=== PATIENT | female | born 1990 | race Caucasian/White ===

== ENCOUNTER 2017-01-06 01:31 | Emergency (ER) | payer OTHER ==
[2017-01-06 01:44] VITALS: BMI 41.1
[2017-01-06 01:47] VITALS: RESP 18
--- NOTE | 2017-01-06 02:16 | ED PDOC ---
Arrival/HPI - General Chief Complaint: Chest Pain Time Seen by Provider: 01/06/17 01:50 Historian: Patient - History of Present Illness Narrative History of Present Illness (Text): 01/06/17 01:50 Renita Serrano is a 26 year old female, whose past medical history includes depression and anxiety, who presents to the emergency department complaining of some chest pressure for a few hours. Patient describes her symptoms as chest pressure that worsens with movement and when lying down At present, patient states she still feels some discomfort and states to have had a similar episode about a year ago. Patient denies any fever, chills, nausea, vomiting, diarrhea, urinary symptoms, back pain, neck pain, headache, dizziness, trauma/injury, suicidal/homicidal ideation or any other complaints.Denies any drug use. Time/Duration: 1-3 hours Symptom Onset: Gradual Symptom Course: Unchanged Activities at Onset: Rest Context: Home Past Medical History - Provider Review Nursing Documentation Reviewed: Yes - Psychiatric Hx Anxiety: Yes Hx Depression: Yes Hx Substance Use: No - Surgical History Hx Section: Yes (x3) Family/Social History - Physician Review Nursing Documentation Reviewed: Yes Family/Social History: No Known Family HX Smoking Status: Light Smoker < 10 Cigarettes Daily Hx Alcohol Use: Yes Frequency of alcohol use: Socially Hx Substance Use: No Allergies/Home Meds Allergies/Adverse Reactions: Allergies acetaminophen [From Percocet] Allergy (Verified 01/06/17 01:43) VOMITING oxycodone [From Percocet] Allergy (Verified 01/06/17 01:43) VOMITING Home Medications: Home Meds Medication Instructions Recorded Confirmed Sertraline HCl [Zoloft] 150 mg PO DAILY 01/06/17 01/06/17 Review of Systems - Physician Review All systems were reviewed & negative as marked: Yes - Review of Systems Constitutional: absent: Fevers, Night Sweats Eyes: absent: Vision Changes ENT: absent: Hearing Changes Respiratory: SOB Cardiovascular: Chest Pain (Chest discomfort which worsens when lying down) Gastrointestinal: absent: Abdominal Pain Genitourinary Female: absent: Dysuria, Frequency Musculoskeletal: absent: Arthralgias, Back Pain Skin: absent: Rash, Pruritis Neurological: absent: Headache, Dizziness Endocrine: absent: Diaphoresis Hemo/Lymphatic: absent: Adenopathy Physical Exam Vital Signs Reviewed: Yes Vital Signs Temp Pulse Resp BP Pulse Ox 01/06/17 01:44 98.6 F 73 18 141/81 100 Temperature: Afebrile Blood Pressure: Normal Pulse: Regular Respiratory Rate: Normal Appearance: Positive for: Well-Appearing, Non-Toxic, Comfortable Pain Distress: None Mental Status: Positive for: Alert and Oriented X 3 - Systems Exam Head: Present: Atraumatic, Normocephalic Pupils: Present: PERRL Extroacular Muscles: Present: EOMI Conjunctiva: Present: Normal Mouth: Present: Moist Mucous Membranes Neck: Present: Normal Range of Motion Respiratory/Chest: Present: Clear to Auscultation, Good Air Exchange. No: Respiratory Distress, Accessory Muscle Use Cardiovascular: Present: Regular Rate and Rhythm, Normal S1, S2. No: Murmurs Abdomen: Present: Normal Bowel Sounds. No: Tenderness, Distention, Peritoneal Signs Back: Present: Normal Inspection Upper Extremity: Present: Normal Inspection. No: Cyanosis, Edema Lower Extremity: Present: Normal Inspection. No: Edema Neurological: Present: GCS=15, CN II-XII Intact, Speech Normal Skin: Present: Warm, Dry, Normal Color. No: Rashes Psychiatric: Present: Alert, Oriented x 3, Normal Insight, Normal Concentration Medical Decision Making ED Course and Treatment: 01/06/17 02:19 Impression: 26 year old female complaining of chest discomfort. Differential Diagnosis included but are not limited to: Plan: -- EKG -- Chest X-ray -- HCG -- Labs -- Reassess and disposition Progress Notes: 01/06/17 04:35 Pt. had relief of symptoms following medication given. - Lab Interpretations Lab Results: 01/06/17 02:15 01/06/17 02:15 Lab Results 01/06/17 02:15: WBC 9.8, RBC 4.12, Hgb 11.9 L, Hct 36.2, MCV 87.9, MCH 28.9, MCHC 32.9, RDW 13.4, Plt Count 312, MPV 9.1 01/06/17 02:15: Urine HCG, Qual Negative 01/06/17 02:15: Sodium 137, Potassium 3.9, Chloride 104, Carbon Dioxide 24, Anion Gap 13, BUN 10, Creatinine 0.5 L, Est GFR ( Amer) > 60, Est GFR ( Non-Af Amer) > 60, Random Glucose 91, Calcium 8.8, Total Bilirubin 0.5, AST 33, ALT 30, Alkaline Phosphatase 49, Lactate Dehydrogenase 414, Total Creatine Kinase 90, Troponin I < 0.01, Total Protein 6.7, Albumin 4.1, Globulin 2.6, Albumin/Globulin Ratio 1.6 01/06/17 02:15: PT 9.9, INR 0.91 L, APTT 26.3, D-Dimer, Quantitative 226 I have reviewed the lab results: Yes - RAD Interpretation Radiology Orders: 01/06/17 01:59 CHEST PORTABLE [RAD] Stat - Medication Orders Current Medication Orders: Discontinued Medications Ketorolac Tromethamine (Toradol) 30 mg IVP ONCE ONE Stop: 01/06/17 03:32 Last Admin: 01/06/17 03:57 Dose: 30 mg MAR Pain Assessment Document 01/06/17 03:57 ARNULFO (Rec: 01/06/17 03:57 ARNULFO [id number]) Pain Reassessment Is this a pain reassessment? Yes Sleep Is patient sleeping during reassessment? No Location Left, Right or Bilateral Left Pain Location Body Site Shoulder IVP Administration Document 01/06/17 03:57 ARNULFO (Rec: 01/06/17 03:57 ARNULFO [id number]) Charges for Administration # of IVP Administrations 1 - Scribe Statement The provider has reviewed the documentation as recorded by the Elvia Alfaro Provider Scribe Attestation: All medical record entries made by the Scribe were at my direction and personally dictated by me. I have reviewed the chart and agree that the record accurately reflects my personal performance of the history, physical exam, medical decision making, and the department course for this patient. I have also personally directed, reviewed, and agree with the discharge instructions and disposition. Disposition/Present on Arrival - Present on Arrival Any Indicators Present on Arrival: No History of DVT/PE: No History of Uncontrolled Diabetes: No Urinary Catheter: No History of Decub. Ulcer: No History Surgical Site Infection Following: None - Disposition Have Diagnosis and Disposition been Completed?: Yes Diagnosis: Musculoskeletal chest pain Disposition: HOME/ ROUTINE Disposition Time: 04:33 Patient Plan: Discharge Condition: GOOD Discharge Instructions (ExitCare): Chest Pain (ED) Additional Instructions: Rest/no strenuous physical activity/take meds as prescribed/follow up with your doctor this week Prescriptions: Naproxen [Naprosyn] 500 mg PO BID PRN #12 tab PRN Reason: Pain Referrals: Fiona NELSON,Gladys Taylor APN [Primary Care Provider] - Follow up with primary Forms: [employer] (Bhutanese)
[2017-01-06 02:39] LABS: HEMATOCRIT 36.2 % (36.0-48.0); MEAN CELL VOLUME 87.9 fl (80.0-105.0); MEAN CORPUSCULAR HEMOGLOBIN 28.9 pg (25.0-35.0); MEAN CORPUSCULAR HGB CONC 32.9 g/dl (31.0-37.0); MEAN PLATELET VOLUME 9.1 fl (7.0-11.0); RED CELL DISTRIBUTION WIDTH 13.4 % (11.5-14.5); WHITE BLOOD COUNT 9.8 10^3/ul (4.5-11.0)
[2017-01-06 02:44] LABS: ALB/GLOB RATIO 1.6 (1.1-1.8); ALKALINE PHOSPHATASE 49 U/L (38-126); ALT/SGPT 30 U/L (7-56); AST/SGOT 33 U/L (14-36); BILIRUBIN,TOTAL 0.5 mg/dL (0.2-1.3); BLOOD UREA NITROGEN 10 mg/dL (7-21); CALCIUM 8.8 mg/dL (8.4-10.5); CARBON DIOXIDE 24 mmol/L (21-33); CHLORIDE 104 mmol/L (98-107); GFR AFRICAN-AMERICAN > 60; GLUCOSE,RANDOM 91 mg/dL (70-110); POTASSIUM 3.9 mmol/L (3.6-5.0); SODIUM 137 mmol/L (132-148); TOTAL PROTEIN 6.7 g/dL (5.8-8.3)
[2017-01-06 02:57] LABS: TROPONIN I < 0.01 ng/mL
[2017-01-06 02:59] LABS: INR 0.91 (0.93-1.08); PARTIAL THROMBOPLASTIN TIME 26.3 Seconds (25.1-36.5)
[2017-01-06 04:46] VITALS: BP 105/69; PULSE 60; TEMP 98; O2SAT 99
--- NOTE | 2017-01-06 08:59 | RAD ---
HISTORY: chest pain COMPARISON: No prior. FINDINGS: LUNGS: The lungs are well inflated and clear. PLEURA: No significant pleural effusion identified, no pneumothorax apparent. CARDIOVASCULAR: Normal. OSSEOUS STRUCTURES: No significant abnormalities. VISUALIZED UPPER ABDOMEN: Normal. OTHER FINDINGS: None. IMPRESSION: No active pulmonary disease.
--- NOTE | 2017-01-06 09:28 | CARD ---
APPROVED REPORT EKG Measurement Heart [id number] [id number] <Conclusion> Normal sinus rhythm Normal ECG
== END 2017-01-06 04:47 | disposition home or self-care (01) ==
LOC: ED 01:31
DX: R07.89 Other chest pain (principal); F17.210 Nicotine dependence, cigarettes, uncomplicated
CPT/HCPCS: 71010; 80053; 82550; 83615; 84484; 84703; 85027; 85378; 85610; 85730; 93005; 96374; 99284; J1885

== ENCOUNTER 2017-02-09 19:07 | Emergency (ER) | payer OTHER ==
[2017-02-09 19:07] VITALS: BMI 41.1
[2017-02-09 19:22] VITALS: RESP 16
[2017-02-09] MEDS ORDERED: Sodium Chloride 0.9% 1,000 ML IV SCH (19:45)
--- NOTE | 2017-02-09 19:45 | ED PDOC ---
Arrival/HPI - General Chief Complaint: Abdominal Pain Time Seen by Provider: 02/09/17 19:08 Historian: Patient - History of Present Illness Narrative History of Present Illness (Text): 02/09/17 19:41 This is a 26 yo female, , FDLMP Sept , with past medical hx of depression and PCOS, presenting with chief complaint of left flank pain. Pt has been having left flank pain with no radiation. x 2 weeks. It was getting worse so she came in. Says she had a similar feeling when she was younger but it would always go away. Reports multiple episodes of non bloody non bilious vomiting. Reports multiple episodes of non bloody diarrhea. Reports it is constant. Initially came on gradually 2 weeks ago. No fevers/chills. Has not been seeing [facility] [employer]. PMH: PCOS, depression, obesity PSH: C section x 3. Allergies: NKDA FH: HTN, diabetes Home meds: zoloft, prental vitamins Social hx: Reports current smoking."5 cigs over the past 2 weeks." Reports current drinking (wine). Denies drug use. Born in [place]. Time/Duration: > week Symptom Onset: Gradual Symptom Course: Worsening Quality: Fullness, Other Severity Level: Moderate Past Medical History - Provider Review Nursing Documentation Reviewed: Yes - Travel History Have you recently traveled outside [place] w/in the past 3 mons?: No - Infectious Disease Hx of Infectious Diseases: None - Tetanus Immunization Tetanus Immunization: Unknown - Reproductive Menopause: No - Cardiac Hx Cardiac Disorders: No - Gastrointestinal Hx Gastrointestinal Disorders: Yes Hx Gall Bladder Disease: Yes - Genitourinary/Gynecological Hx Genitourinary Disorders: Yes Other/Comment: PCOS - Psychiatric Hx Anxiety: Yes Hx Depression: Yes Hx Substance Use: No - Surgical History Hx Section: Yes (x3) Family/Social History - Physician Review Nursing Documentation Reviewed: Yes Family/Social History: Diabetes, Hypertension Smoking Status: Current Some Days Smoker Hx Alcohol Use: Yes (occasional glass of wine) Hx Substance Use: No Hx Substance Use Treatment: No Allergies/Home Meds Allergies/Adverse Reactions: Allergies acetaminophen [From Percocet] Allergy (Verified 01/06/17 01:43) VOMITING oxycodone [From Percocet] Allergy (Verified 01/06/17 01:43) VOMITING Home Medications: Home Meds Medication Instructions Recorded Confirmed Vit Calc,Iron,Folic 1 each PO DAILY 02/09/17 02/09/17 [ Vitamins] Sertraline [Zoloft] 150 mg PO DAILY 02/09/17 02/09/17 Review of Systems - Review of Systems Constitutional: absent: Weight Change, Fevers Eyes: absent: Vision Changes, Photophobia ENT: absent: Hearing Changes, Tinnitus Respiratory: absent: SOB, Cough Cardiovascular: absent: Chest Pain, Palpitations Gastrointestinal: Abdominal Pain, Diarrhea, Nausea, Vomiting Genitourinary Female: absent: Dysuria, Frequency Musculoskeletal: absent: Arthralgias, Back Pain Skin: absent: Rash, Pruritis Neurological: absent: Headache, Dizziness Endocrine: absent: Diaphoresis, Polyuria Hemo/Lymphatic: absent: Adenopathy, Easy Bleeding Psychiatric: Depression Physical Exam Vital Signs Reviewed: Yes Vital Signs Temp Pulse Resp BP Pulse Ox 02/09/17 23:09 98.3 F 81 16 135/69 98 02/09/17 21:07 98 F 77 16 133/70 98 02/09/17 19:21 98.8 F 79 16 120/78 97 - Systems Exam Head: Present: Atraumatic, Normocephalic Pupils: Present: PERRL Extroacular Muscles: Present: EOMI Mouth: Present: Dry Neck: Present: Normal Range of Motion Respiratory/Chest: Present: Clear to Auscultation. No: Respiratory Distress Cardiovascular: Present: Normal S1, S2 Abdomen: Present: Tenderness. No: Distention, Peritoneal Signs, Guarding Back: Present: CVA Tenderness Upper Extremity: Present: Normal Inspection. No: Cyanosis, Edema Lower Extremity: Present: Normal Inspection. No: Edema Neurological: Present: CN II-XII Intact, Speech Normal Skin: Present: Warm, Dry Psychiatric: Present: Alert, Oriented x 3, Normal Insight, Normal Concentration Medical Decision Making - Lab Interpretations Lab Results: 02/09/17 19:40 02/09/17 19:40 Lab Results 02/09/17 19:40: Sodium 135, Potassium 3.7, Chloride 102, Carbon Dioxide 25, Anion Gap 12, BUN 11, Creatinine 0.5 L, Est GFR ( Amer) > 60, Est GFR ( Non-Af Amer) > 60, Random Glucose 90, Calcium 9.4, Total Bilirubin 0.5, AST 47 H D, ALT 46, Alkaline Phosphatase 49, Total Protein 6.9, Albumin 4.0, Globulin 2.9, Albumin/Globulin Ratio 1.4, Amylase 129 H, Lipase 92 02/09/17 19:40: WBC 10.5, RBC 4.00, Hgb 11.8 L, Hct 35.2 L, MCV 88.0, MCH 29.5, MCHC 33.5, RDW 13.6, Plt Count 298, MPV 9.4, Gran % 68.4 H, Lymph % (Auto) 25.8 , [place] % (Auto) 4.8, Eos % (Auto) 0.9 L, Baso % (Auto) 0.1, Gran # 7.20 H, Lymph # 2.7, Cannon # 0.5, Eos # 0.1, Baso # 0.01 02/09/17 19:36: Urine HCG, Qual Positive 02/09/17 19:36: Urine Color Yellow, Urine Appearance Clear, Urine pH 6.0, Ur Specific [place] 1.015, Urine Protein Negative, Urine Glucose (UA) Negative, Urine Ketones Negative, Urine Blood Negative, Urine Nitrate Negative, Urine Bilirubin Negative, Urine Urobilinogen 0.2, Ur Leukocyte Esterase Negative - RAD Interpretation Radiology Orders: 02/09/17 19:37 ABDOMEN COMPLETE [US] Stat OB TRANSVAGINAL [US] Stat - Medication Orders Current Medication Orders: Discontinued Medications Sodium Chloride (Sodium Chloride 0.9%) 1,000 mls @ 100 mls/hr IV .Q10H TAMICA Last Admin: 02/09/17 19:48 Dose: 100 mls/hr eMAR Start Stop Document 02/09/17 19:48 LAC (Rec: 02/09/17 19:49 [facility] [id number] Intravenous Solution Start Date 02/09/17 Start Time 19:49 End Date 02/10/17 End time 03:00 Total Infusion Time 431 Disposition/Present on Arrival - Present on Arrival Any Indicators Present on Arrival: No History of DVT/PE: No History of Uncontrolled Diabetes: No Urinary Catheter: No History of Decub. Ulcer: No History Surgical Site Infection Following: None - Disposition Have Diagnosis and Disposition been Completed?: Yes Diagnosis: Flank pain Disposition: HOME/ ROUTINE Disposition Time: 23:00 Condition: STABLE Discharge Instructions (ExitCare): (ED), Abdominal Pain in (ED), Flank Pain (ED) Referrals: [facility], [Non-Staff] - Follow up with primary Forms: [employer] (Slovenian)
[2017-02-09 19:54] LABS: BASO # 0.01 K/mm3 (0.0-2.0); BASO % 0.1 % (0.0-3.0); EOS # 0.1 (0.0-0.7); EOS % 0.9 % (1.5-5.0); GRAN # 7.2 (1.4-6.5); GRAN % 68.4 % (50.0-68.0); HEMATOCRIT 35.2 % (36.0-48.0); LYMPH # 2.7 (1.2-3.4); LYMPH % 25.8 % (22.0-35.0); MEAN CORPUSCULAR HEMOGLOBIN 29.5 pg (25.0-35.0); MEAN CORPUSCULAR HGB CONC 33.5 g/dl (31.0-37.0); MEAN PLATELET VOLUME 9.4 fl (7.0-11.0); MONO # 0.5 (0.1-0.6); MONO % 4.8 % (1.0-6.0); RED CELL DISTRIBUTION WIDTH 13.6 % (11.5-14.5); WHITE BLOOD COUNT 10.5 10^3/ul (4.5-11.0)
[2017-02-09 20:01] LABS: URINE BILIRUBIN NEGATIVE (NEGATIVE); URINE BLOOD NEGATIVE (NEGATIVE); URINE GLUCOSE (UA) NEGATIVE (NEGATIVE); URINE KETONE NEGATIVE (NEGATIVE); URINE LEUKOCYTE ESTERASE NEGATIVE Leu/uL (NEGATIVE); URINE PROTEIN NEGATIVE mg/dL (<30 mg/dL); URINE UROBILINOGEN 0.2 E.U./dL (<1 E.U./dL)
[2017-02-09 20:02] LABS: URINE APPEARANCE CLEAR (CLEAR); URINE COLOR YELLOW (YELLOW)
[2017-02-09 20:06] LABS: ALB/GLOB RATIO 1.4 (1.1-1.8); ALKALINE PHOSPHATASE 49 U/L (38-126); ALT/SGPT 46 U/L (7-56); AMYLASE 129 U/L (35-125); AST/SGOT 47 U/L (14-36); BILIRUBIN,TOTAL 0.5 mg/dL (0.2-1.3); BLOOD UREA NITROGEN 11 mg/dL (7-21); CALCIUM 9.4 mg/dL (8.4-10.5); CARBON DIOXIDE 25 mmol/L (21-33); CHLORIDE 102 mmol/L (98-107); GFR AFRICAN-AMERICAN > 60; GLUCOSE,RANDOM 90 mg/dL (70-110); LIPASE 92 U/L (23-300); POTASSIUM 3.7 mmol/L (3.6-5.0); SODIUM 135 mmol/L (132-148); TOTAL PROTEIN 6.9 g/dL (5.8-8.3)
--- NOTE | 2017-02-09 21:41 | US ---
EXAM: US Abdomen Complete CLINICAL HISTORY: 26 years old, female; Pain; Other: Lt flank; ; Additional info: Left flank pain TECHNIQUE: Real-time ultrasound of the abdomen (complete) with image documentation. COMPARISON: No relevant prior studies available. FINDINGS: Liver: Enlarged, 20.1 cm. Normal echogenicity. No mass. No intrahepatic bile duct dilatation. Gallbladder: No gallstones. No wall thickening. No pericholecystic fluid. No sonographic Cash's sign. Common bile duct: No dilatation. No stones. Pancreas: Unremarkable as visualized. Kidneys: Normal echogenicity. No hydronephrosis. Spleen: No splenomegaly. Aorta: Unremarkable. No aneurysm. Inferior vena cava: Unremarkable. Free fluid: No significant free fluid. IMPRESSION: 1.No acute findings. 2.Non-acute findings are described above.
--- NOTE | 2017-02-09 21:44 | US ---
EXAM: US First Trimester, Transabdominal CLINICAL HISTORY: 26 years old, female; Pain; Other: Lt flank pain/nausea/; Gestational age or lmp: 12/14/16; Additional info: Abd pain/nausea TECHNIQUE: Real-time transabdominal obstetrical ultrasound of the maternal pelvis and a first trimester with image documentation. COMPARISON: No relevant prior studies available. FINDINGS: Gestation: Single live intrauterine gestation. heart rate of 151 beats per minute. [place]-rump length of 1.38 cm, correlating with gestational age of 7 weeks 5 days. Uterus/cervix: No subchorionic hemorrhage. No cervical dilatation or effacement. Ovaries: RIGHT ovary: Not visualized. LEFT ovary: Normal. No adnexal masses. Free fluid: No significant free fluid. IMPRESSION: 1. Single live intrauterine gestation. EXAM: US , Transvaginal CLINICAL HISTORY: 26 years old, female; Pain; Other: Lt flank pain/nausea/; Gestational age or lmp: 12/14/16; Additional info: Abd pain/nausea TECHNIQUE: Real-time transvaginal obstetrical ultrasound of the maternal pelvis and a first trimester with image documentation. Transvaginal imaging was used for better evaluation of the fetus and adnexa. COMPARISON: No relevant prior studies available. FINDINGS: Gestation: Single live intrauterine gestation. heart rate of 151 beats per minute. [place]-rump length of 1.38 cm, correlating with gestational age of 7 weeks 5 days. Uterus/cervix: No subchorionic hemorrhage. No cervical dilatation or effacement. Ovaries: RIGHT ovary: Not visualized. LEFT ovary: Normal. No adnexal masses. Free fluid: No significant free fluid.
[2017-02-09 23:09] VITALS: O2SAT 98
[2017-02-09 23:10] VITALS: BP 135/69; PULSE 81; TEMP 98.3
== END 2017-02-09 23:17 | disposition home or self-care (01) ==
LOC: ED 19:07
DX: R10.9 Unspecified abdominal pain (principal); F17.200 Nicotine dependence, unspecified, uncomplicated; Z82.49 Family history of ischemic heart disease and other diseases of the circulatory system; Z83.3 Family history of diabetes mellitus
CPT/HCPCS: 76700; 76817; 80053; 81003; 82150; 83690; 84703; 85025; 87086; 96360; 96361; 99284; J7040

== ENCOUNTER 2017-05-20 22:39 | Emergency (ER) | payer OTHER ==
[2017-05-20 22:57] VITALS: TEMP 98.2; BMI 42.9
[2017-05-20] MEDS ORDERED: Sodium Chloride 0.9% 1,000 ML IV STA (23:15)
[2017-05-20] MEDS ORDERED: DiphenhydrAMINE 50 mg/ml Inj IVP STA (23:15)
[2017-05-20 23:44] LABS: URINE BILIRUBIN NEGATIVE (NEGATIVE); URINE BLOOD NEGATIVE (NEGATIVE); URINE GLUCOSE (UA) NEGATIVE (NEGATIVE); URINE LEUKOCYTE ESTERASE NEGATIVE Leu/uL (NEGATIVE); URINE PROTEIN NEGATIVE mg/dL (<30 mg/dL); URINE UROBILINOGEN 0.2 E.U./dL (<1 E.U./dL)
[2017-05-20 23:49] LABS: URINE APPEARANCE CLEAR (CLEAR); URINE COLOR STRAW (YELLOW)
--- NOTE | 2017-05-21 01:24 | ED PDOC ---
Arrival/HPI - General Chief Complaint: Headache Time Seen by Provider: 05/20/17 23:08 Historian: Patient - History of Present Illness Narrative History of Present Illness (Text): 05/21/17 01:14 27-year-old female who is approximately 23 weeks presents today with a 3 week history of continued headaches. Patient states that she has a constant pounding/throbbing headache to the posterior head. Patient states it feels as if her head is going to explode. Pt states when she lays flat she feels worsening pain and a build up of pressure. Patient states she's been taking Tylenol for pain at home for the past 3 weeks without improvement. Patient states the headache has not resolved in the past 3 weeks. She denies blurred vision. She denies dizziness or weakness. Denies chest pain or shortness of breath. Patient denies abdominal pain. Patient denies prior hx of headaches. Time/Duration: > week (3 weeks) Symptom Onset: Gradual Symptom Course: Worsening Quality: Throbbing Severity Level: 10 Activities at Onset: Rest Past Medical History - Provider Review Nursing Documentation Reviewed: Yes - Travel History Have you recently traveled outside [place] w/in the past 3 mons?: No - Infectious Disease Hx of Infectious Diseases: None - Tetanus Immunization Tetanus Immunization: Unknown - Cardiac Hx Cardiac Disorders: No - Gastrointestinal Hx Gastrointestinal Disorders: Yes Hx Gall Bladder Disease: Yes - Genitourinary/Gynecological Hx Genitourinary Disorders: Yes Other/Comment: PCOS - Psychiatric Hx Anxiety: Yes Hx Depression: Yes Hx Substance Use: No - Surgical History Hx Section: Yes (x3) Family/Social History - Physician Review Nursing Documentation Reviewed: Yes Family/Social History: Unknown Family HX Smoking Status: Current Some Days Smoker Hx Alcohol Use: Yes (occasional glass of wine) Hx Substance Use: No Hx Substance Use Treatment: No Allergies/Home Meds Allergies/Adverse Reactions: Allergies acetaminophen [From Percocet] Allergy (Verified 05/20/17 22:57) VOMITING oxycodone [From Percocet] Allergy (Verified 05/20/17 22:57) VOMITING Home Medications: Home Meds Medication Instructions Recorded Confirmed Vit Calc,Iron,Folic 1 each PO DAILY 02/09/17 05/20/17 [ Vitamins] Review of Systems - Review of Systems Constitutional: absent: Fatigue, Fevers ENT: absent: Sore Throat, Epistaxis, Sinus Congestion Respiratory: absent: SOB, Cough Cardiovascular: absent: Chest Pain, Palpitations, Syncope Gastrointestinal: Nausea. absent: Abdominal Pain, Constipation, Diarrhea, Vomiting Genitourinary Female: absent: Dysuria, Frequency, Hematuria Musculoskeletal: absent: Arthralgias, Back Pain, Neck Pain Skin: absent: Rash, Pruritis Neurological: Headache. absent: Dizziness, Focal Weakness, Gait Changes, Speech Changes Psychiatric: absent: Anxiety, Depression, Suicidal Ideation Physical Exam Vital Signs Reviewed: Yes Vital Signs Temp Pulse Resp BP Pulse Ox 05/21/17 01:51 88 18 117/64 100 05/20/17 22:56 98.2 F 81 16 129/76 98 Temperature: Afebrile Blood Pressure: Normal Pulse: Regular Respiratory Rate: Normal Appearance: Positive for: Well-Appearing, Non-Toxic, Comfortable Pain Distress: None Mental Status: Positive for: Alert and Oriented X 3 - Systems Exam Head: Present: Atraumatic Pupils: Present: PERRL Extroacular Muscles: Present: EOMI Conjunctiva: Present: Normal Mouth: Present: Moist Mucous Membranes Nose (External): Present: Atraumatic Nose (Internal): Present: Normal Inspection Neck: Present: Normal Range of Motion, Trachea Midline. No: Meningeal Signs, MIDLINE TENDERNESS, Paraspinal Tenderness, Lymphadenopathy Respiratory/Chest: Present: Clear to Auscultation, Good Air Exchange. No: Respiratory Distress, Accessory Muscle Use Cardiovascular: Present: Regular Rate and Rhythm, Normal S1, S2. No: Murmurs Upper Extremity: Present: Normal ROM Lower Extremity: Present: Normal ROM. No: Edema Neurological: Present: GCS=15, Speech Normal Skin: Present: Warm, Dry, Normal Color. No: Rashes Psychiatric: Present: Alert, Oriented x 3 Medical Decision Making ED Course and Treatment: 05/21/17 01:26 27yr old female, 23 weeks with constant headache x 3 weeks. pt seen and evaluated by dr. rhodes. discussed risks and benefits of reglan in / harm of fetus with the patient; pt has agreed to taking reglan. discussed the risks and benefits of CT of the head with the patient in depth; discussed risk of radiation and harm to fetus. pt agrees to CT of head. pt given NS iv bolus pt given reglan IV and benadryl 25mg IV. UA; wnl ct head; FINDINGS: Brain: Unremarkable. No hemorrhage. No significant white matter disease. No edema. Ventricles: Unremarkable. No ventriculomegaly. Bones/joints: Unremarkable. No acute fracture. Soft tissues: Unremarkable. Sinuses: Unremarkable. No acute sinusitis. Mastoid air cells: Unremarkable. No mastoid effusion. IMPRESSION: No evidence of an acute intracranial hemorrhage, midline shift or mass effect is identified. 05/21/17 01:47 pt reassessment; pts headache has completely resolved. pts vitals are stable; pt in no distress. 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 advised immediate return if symptoms worsen,persist or if new symptoms develop. Patient verbalizes understanding of discharge instructions and need for immediate followup. all aspects of this case were discussed the attending of record. impression; headache tylenol every 4 hours as needed for pain increase fluids follow up with the [facility] within the next 2 days return IMMEDIATELY if symptoms worsen, persist or if new symptoms develop. Reassessment Condition: Re-examined, Improved - Lab Interpretations Lab Results: Lab Results 05/20/17 23:30: Urine Color Straw, Urine Appearance Clear, Urine pH 7.0, Ur Specific [place] 1.015, Urine Protein Negative, Urine Glucose (UA) Negative, Urine Ketones Negative, Urine Blood Negative, Urine Nitrate Negative, Urine Bilirubin Negative, Urine Urobilinogen 0.2, Ur Leukocyte Esterase Negative - RAD Interpretation Radiology Orders: 05/20/17 23:16 HEAD W/O CONTRAST [CT] Stat - Medication Orders Current Medication Orders: Discontinued Medications Diphenhydramine HCl (Benadryl) 25 mg IVP STAT STA Stop: 05/20/17 23:16 Last Admin: 05/20/17 23:38 Dose: 25 mg IVP Administration Document 05/20/17 23:38 AD (Rec: 05/20/17 23:38 AD [id number]) Charges for Administration # of IVP Administrations 1 Sodium Chloride (Sodium Chloride 0.9%) 1,000 mls @ 999 mls/hr IV .Q1H1M STA Stop: 05/21/17 00:15 Last Admin: 05/20/17 23:39 Dose: 999 mls/hr eMAR Start Stop Document 05/20/17 23:39 AD (Rec: 05/20/17 23:39 AD [id number]) Intravenous Solution Start Date 05/20/17 Start Time 23:39 End Date 05/21/17 End time 00:40 Total Infusion Time 61 Metoclopramide HCl (Reglan) 10 mg IVP STAT STA Stop: 05/20/17 23:16 Last Admin: 05/20/17 23:38 Dose: 10 mg IVP Administration Document 05/20/17 23:38 AD (Rec: 05/20/17 23:38 AD [id number]) Charges for Administration # of IVP Administrations 1 Disposition/Present on Arrival - Present on Arrival Any Indicators Present on Arrival: No History of DVT/PE: No History of Uncontrolled Diabetes: No Urinary Catheter: No History of Decub. Ulcer: No History Surgical Site Infection Following: None - Disposition Have Diagnosis and Disposition been Completed?: Yes Diagnosis: Headache Disposition: HOME/ ROUTINE Disposition Time: 01:52 Patient Plan: Discharge Condition: GOOD Additional Instructions: tylenol every 4 hours as needed for pain increase fluids follow up with the [facility] within the next 2 days return IMMEDIATELY if symptoms worsen, persist or if new symptoms develop. Referrals: Fiona NELSON,Gladys Taylor APN [Primary Care Provider] - Follow up with primary Forms: [employer] (Mauritanian)
--- NOTE | 2017-05-21 01:45 | CT ---
EXAM: CT Head Without Intravenous Contrast CLINICAL HISTORY: 27 years old, female; Pain; Headache TECHNIQUE: Axial computed tomography images of the head/brain without intravenous contrast. All CT scans at this facility use one or more dose reduction techniques, viz.: automated exposure control; ma/kV adjustment per patient size (including targeted exams where dose is matched to indication; i.e. head); or iterative reconstruction technique. 363 images are submitted. Coronal and sagittal reformatted images were created and reviewed. Axial reformatted images were created and reviewed. COMPARISON: No relevant prior studies available. FINDINGS: Brain: Unremarkable. No hemorrhage. No significant white matter disease. No edema. Ventricles: Unremarkable. No ventriculomegaly. Bones/joints: Unremarkable. No acute fracture. Soft tissues: Unremarkable. Sinuses: Unremarkable. No acute sinusitis. Mastoid air cells: Unremarkable. No mastoid effusion. IMPRESSION: No evidence of an acute intracranial hemorrhage, midline shift or mass effect is identified.
[2017-05-21 01:51] VITALS: BP 117/64; PULSE 88; RESP 18; O2SAT 100
== END 2017-05-21 02:02 | disposition home or self-care (01) ==
LOC: ED 22:39
DX: O26.892 Other specified pregnancy related conditions, second trimester (principal); Z3A.23 23 weeks gestation of pregnancy; R51 Headache
CPT/HCPCS: 70450; 81003; 96361; 96374; 96375; 99285; J1200; J2765; J7040